=== PATIENT | female | born 1990 | race Caucasian/White ===

== ENCOUNTER → 2023-02-17 16:24 | Outpatient (BNVA) | payer BC, MEDICAID, SELFPAY | PROVIDERS: Family Provider Obstetrics & Gynecology; Visit Provider Emergency Medicine | DX: B37.9 Candidiasis, unspecified (principal); B96.89 Other specified bacterial agents as the cause of diseases classified elsewhere; N76.0 Acute vaginitis; Z20.2 Contact with and (suspected) exposure to infections with a predominantly sexual mode of transmission | CPT/HCPCS: 87491; 87591 ==

== ENCOUNTER → 2023-03-03 13:00 | Outpatient (BNVA) | payer BC, SELFPAY | PROVIDERS: Family Provider Obstetrics & Gynecology; Visit Provider Obstetrics & Gynecology | DX: Z12.4 Encounter for screening for malignant neoplasm of cervix (principal) | CPT/HCPCS: 87624 ==

== ENCOUNTER → 2023-03-31 10:12 | Outpatient (BNVA) | payer BC, SELFPAY | PROVIDERS: Family Provider Obstetrics & Gynecology; Visit Provider Obstetrics & Gynecology | DX: R10.2 Pelvic and perineal pain (principal) | CPT/HCPCS: 76830 ==

== ENCOUNTER → 2023-04-02 14:40 | Outpatient (BNVA) | payer BC, SELFPAY | PROVIDERS: Family Provider Obstetrics & Gynecology; Visit Provider Obstetrics & Gynecology | DX: A74.9 Chlamydial infection, unspecified (principal) | CPT/HCPCS: 87491; 87591 ==

== ENCOUNTER 2023-06-05 17:07 | Emergency (ER) | payer BC, MEDICAID, SELFPAY ==
[2023-06-05 17:28] VITALS: BP 125/94; PULSE 95; RESP 15; TEMP 37; O2SAT 99
--- NOTE | 2023-06-05 18:15 | USR_ITS ---
PROCEDURE INFORMATION: Exam: US , Transvaginal Exam date and time: 06/05/2023 6:48 PM Age: 32 years old Clinical indication: complicated by abdominal or pelvic pain; Right lower quadrant; First trimester (<14 weeks 0 days); Gestational age or lmp: 10w 0d by US; ; Patient HX: G4-p3-a1-l2 -- first was ectopic (left fallopian). Now rlq pain today, no vaginal bleeding. Positive qualitative hcg. Quantitative hcg is still pending at end of this exam. ; Additional info: Abd pain TECHNIQUE: Imaging protocol: Real-time transvaginal obstetrical ultrasound of the maternal pelvis with image documentation. Transvaginal imaging was used for better evaluation of the fetus, adnexa, and/or cervix. COMPARISON: US transvaginal [id number] 03/31/2023 10:19 AM FINDINGS: Gestation: See heart rate finding. heart rate: A single gestational sac is seen within the endometrium of the uterus with identification of a single pole with heart rate of 176 beats per minute. A small yolk sac is seen. BIOMETRY: Gestational age (AUA): [place]-rump length is 30.6 mm consistent with gestational age of 10 weeks 0 days. GRETCHEN of 01/01/2024. MATERNAL: Uterus: Uterus measures 10.4 x 8.5 x 7.2 cm and appears unremarkable. Right ovary/adnexa: Right ovary measures 3.5 x 3 x 1.6 cm and appears unremarkable. Right ovarian flow is seen. Left ovary/adnexa: Left ovary measures 2.6 x 2.6 x 1.1 cm and appears unremarkable. Left ovarian flow is seen. Intraperitoneal space: No significant free fluid. US/US pelvic complete* [id number] IMPRESSION: Single viable intrauterine of 10 weeks by crown-rump length with GRETCHEN 01/01/2024.
[2023-06-05 18:19] LABS: Basophils # 0.1 10^3/uL (0.0-0.1); Basophils % 0.5 %; Eosinophils # 0.1 10^3/uL (0.0-0.8); Eosinophils % 0.6 %; Hematocrit 40.2 % (36-47); Lymphocytes # 2.1 10^3/uL (0.8-4.8); Lymphocytes % 19.2 %; Mean Corpuscular HGB Conc 32.8 g/dL (30-55); Mean Corpuscular Volume 88.4 fl (85-98); Mean Platelet Volume 10.1 fL (7.4-10.4); Monocytes # 0.6 10^3/uL (0.2-0.9); Monocytes % 5.7 %; Neutrophils # 7.99 10^3/uL (1.8-7.7); Neutrophils % 73.7 %; Nucleated Red Blood Cells % 0 %; Platelet Count 354 10^3/cmm (157-399); Red Blood Count 4.55 10^6/uL (3.85-5.65); Red Cell Distribution Width 11.8 % (12.1-15.1); White Blood Count 10.83 10^3/uL (3.29-11.43)
--- NOTE | 2023-06-05 18:22 | W.ED.ABDPA2 ---
HPI - Abdominal Pain General: Chief Complaint: Abdominal Pain Stated Complaint: abd pain,preg 8 wks Time Seen by Provider: 06/05/23 18:14 Source: patient Mode of arrival: ambulatory Limitations: no limitations History of Present Illness: 32-year-old female states she is currently 8 weeks she is [facility] here [facility] as she has had a history of ectopic she states that over the last 2 weeks she has been having some suprapubic abdominal pain its been off-and-on she rates the pain a 2 out of 10 currently she denies any vomiting or diarrhea denies any fevers. Associated Symptoms: Denies chills, diarrhea, dysuria, fever(s), nausea and vomiting Review of Systems Const: Denies: fever(s), chills, body aches or change in appetite Eyes: Denies: blurry vision or eye discomfort ENMT: Denies: throat pain or dental pain Card: Denies: chest pain Resp: Denies: dyspnea GI: Reports: abdominal pain; Denies: nausea, vomiting or diarrhea : Denies: dysuria Musc: Denies: neck pain or back pain Skin/Breast: Denies: rash Neuro: Denies: headache(s) PFSH ED PFSH: Family History Denies family history of Colon cancer Ovarian cancer Diabetes Heart disease Hyperlipidemia Breast cancer Hypertension Uterine cancer Thyroid disease Stroke Physical Exam Const: COMMON NORMALS: no acute distress, patient oriented x3 and healthy appearing HENMT: COMMON NORMALS: normocephalic and atraumatic HEAD & SCALP: normocephalic and atraumatic Eye: COMMON NORMALS: Equal, round and reactive pupils present and EOMs intact bilaterally PUPIL: Yes Equal, round and reactive pupils present Neck/C-Spine: COMMON NORMALS: full ROM and supple Chest: COMMONS NORMALS: normal inspection of the chest and normal palpation of entire chest wall Resp: COMMON NORMALS: normal respiratory effort, No retractions, No use of accessory muscles and clear to auscultation bilaterally AUSCULTATION: clear to auscultation bilaterally Cardio: COMMON NORMALS: regular rate, regular rhythm and No murmurs present (Cardio) RATE: regular rate RHYTHM: regular rhythm GI: COMMON NORMALS: Normal to inspection, nondistended, normoactive bowel sounds present, Soft to palpation, non-tender and no masses PALPATION: Yes Soft to palpation Extremity: COMMON NORMALS: normal to inspection and full ROM Neuro: COMMON NORMALS: patient oriented x3, moves all extremities and no focal motor deficits Psych: COMMON NORMALS: mental status grossly normal, Normal thought process present and cooperative THOUGHT PROCESS: Normal thought process present Skin: COMMON NORMALS: no rashes or lesions noted and no wounds GENERAL SKIN EXAM: no rashes or lesions noted Course Vital Signs: Vital signs: Vital Signs Temperature 98.6 F 06/05/23 17:28 Pulse Rate 95 06/05/23 17:28 Respiratory Rate 15 06/05/23 17:28 Blood Pressure 125/94 06/05/23 17:28 Pulse Oximetry 99 06/05/23 17:28 Oxygen Delivery Me thod Room Air 06/05/23 17:28 MDM - Abdominal Pain Medical Decision Making Patient presents here with abdominal pain in her exam is benign no signs of appendicitis ultrasound here is normal patient stable for discharge she is to follow-up with her OB and return if worsening Medical Records I reviewed the patient's medical records. Lab Data I reviewed the patient's lab results. 06/05/23 17:59 06/05/23 17:59 Labs/Radiology: Radiology Impressions Pelvis Ultrasound 06/05/23 18:15 IMPRESSION: Single viable intrauterine of 10 weeks by crown-rump length with GRETCHEN 01/01/2024. Laboratory Results WBC 10.83 10^3/uL (3.29-11.43) 06/05/23 17:59 RBC 4.55 10^6/uL (3.85-5.65) 06/05/23 17:59 Hgb 13.20 g/dL (11.27-16.99) 06/05/23 17:59 Hct 40.2 % (36-47) 06/05/23 17:59 MCV 88.4 fl (85-98) 06/05/23 17:59 MCH 29.0 pg (27-33) 06/05/23 17:59 MCHC 32.8 g/dL (30-55) 06/05/23 17:59 RDW 11.8 % (12.1-15.1) L 06/05/23 17:59 Plt Count 354 10^3/cmm (157-399) 06/05/23 17:59 MPV 10.1 fL (7.4-10.4) 06/05/23 17:59 Neut % (Auto) 73.7 % 06/05/23 17:59 Lymph % (Auto) 19.2 % 06/05/23 17:59 [place] % (Auto) 5.7 % 06/05/23 17:59 Eos % (Auto) 0.6 % 06/05/23 17:59 Baso % (Auto) 0.5 % 06/05/23 17:59 Neut # (Auto) 7.99 10^3/uL (1.8-7.7) H 06/05/23 17:59 Lymph # (Auto) 2.1 10^3/uL (0.8-4.8) 06/05/23 17:59 [place] # (Auto) 0.6 10^3/uL (0.2-0.9) 06/05/23 17:59 Eos # (Auto) 0.1 10^3/uL (0.0-0.8) 06/05/23 17:59 Baso # (Auto) 0.1 10^3/uL (0.0-0.1) 06/05/23 17:59 Nucleated RBC % (auto) 0 % 06/05/23 17:59 Nucleated RBCs # 0.0 /100WBC 06/05/23 17:59 Sodium 136 mmol/L (136-145) 06/05/23 17:59 Potassium 3.1 mmol/L (3.5-5.1) L 06/05/23 17:59 Chloride 101 mmol/L (98-107) 06/05/23 17:59 Carbon Dioxide 19 mmol/L (22-29) L 06/05/23 17:59 Anion Gap 19.1 (5-19) H 06/05/23 17:59 BUN 7 mg/dL (6-20) 06/05/23 17:59 Creatinine 0.4 mg/dL (0.5-0.9) L 06/05/23 17:59 GFR Calculation 186.2 mL/min (90-130) H 06/05/23 17:59 Glucose 85 mg/dL (65-115) 06/05/23 17:59 Calculated Osmolality 279 mOsm/kg (285-295) L 06/05/23 17:59 Calcium 9.5 mg/dL (8.5-10.5) 06/05/23 17:59 Total Bilirubin 0.3 mg/dL (0.15-1.2) 06/05/23 17:59 AST 17 U/L (0-32) 06/05/23 17:59 ALT 25 U/L (0-33) 06/05/23 17:59 Alkaline Phosphatase 113 U/L (35-105) H 06/05/23 17:59 Total Protein 7.7 g/dL (6.6-8.7) 06/05/23 17:59 Albumin 4.2 g/dL (3.5-5.2) 06/05/23 17:59 Globulin 3.5 g/dL (1.3-4.6) 06/05/23 17:59 Ser , Semi-Qnt 48703.00 mIU/mL 06/05/23 17:59 Urine Color Yellow (Yellow) 06/05/23 20:24 Urine Appearance Clear (CLEAR) 06/05/23 20:24 Urine pH 5 (5-7) 06/05/23 20:24 Ur Specific [place] 1.025 (1.005-1.030) 06/05/23 20:24 Urine Protein Neg (Negative) 06/05/23 20:24 Urine Glucose (UA) Norm (Normal) 06/05/23 20:24 Urine Ketones 2+ (Negative) H 06/05/23 20:24 Urine Blood 2+ (Negative) H 06/05/23 20:24 Urine Nitrate Negative (Negative) 06/05/23 20:24 Urine Bilirubin Neg (Negative) 06/05/23 20:24 Urine Urobilinogen Neg mg/dL (Negative) 06/05/23 20:24 Ur Leukocyte Esterase Negative (Negative) 06/05/23 20:24 Urine RBC 5-10 /hpf (0-2) H 06/05/23 20:24 Urine WBC 0-4 /hpf (0-5) H 06/05/23 20:24 Ur Squamous Epith Cells 5-10 /hpf (0-5) H 06/05/23 20:24 Amorphous Sediment Not Reportable 06/05/23 20:24 Urine Bacteria Trace /hpf (NONE) 06/05/23 20:24 Urine Mucus 2+ /hpf 06/05/23 20:24 Blood Type A Positive 06/05/23 18:50 Rho(D) Type Rh positive 06/05/23 18:50 Antibody Screen Negative 06/05/23 18:50 All radiology interpretation(s) finalized by discharge Discharge Plan Discharge Patient Disposition: Home Clinical Impression: Pelvic pain affecting Qualifiers: Trimester: first trimester Qualified Code(s): O26.891 - Other specified related conditions, first trimester Condition: Stable Prescriptions: No Action PNV #[id number] 30 mg iron-10 mg iron-1 mg capsule PO Discharge Orders: Discharge ED (Routine); Ordered 06/05/23 Ordered By: Jason Kolb Referrals: Miko Hickey MD [Primary Care Provider] - 1-3 days Discharge Diet: Advance as tolerated Discharge Activity: Resume usual activity Patient Instructions: Abdominal Pain in (ED) Coding Level of Care Code ED Fretted String Instrument Repairer for Dov Hunt
[2023-06-05 19:08] LABS: Alanine Aminotransferase 25 U/L (0-33); Albumin Level 4.2 g/dL (3.5-5.2); Alkaline Phosphatase 113 U/L (35-105); Anion Gap 19.1 (5-19); Aspartate Amino Transferase 17 U/L (0-32); Blood Urea Nitrogen 7 mg/dL (6-20); Calcium 9.5 mg/dL (8.5-10.5); Carbon Dioxide 19 mmol/L (22-29); Chloride 101 mmol/L (98-107); Globulin 3.5 g/dL (1.3-4.6); Glomerular Filtration Rate 186.2 mL/min (90-130); Glucose 85 mg/dL (65-115); Osmolality Calculated 279 mOsm/kg (285-295); Potassium 3.1 mmol/L (3.5-5.1); Sodium 136 mmol/L (136-145); Total Bilirubin 0.3 mg/dL (0.15-1.2); Total Protein 7.7 g/dL (6.6-8.7)
[2023-06-05 19:10] LABS: Creatinine Clr Calc Pharmacy 164.6403
[2023-06-05 20:32] LABS: Add Urine Culture? No; Add Urine Microscopic? YES; Bacteria Urine TRACE /hpf; Bilirubin Urine Neg (Negative); Blood Urine 2+ (Negative); Glucose Urine UA Norm (Normal); Ketones Urine 2+ (Negative); Leukocyte Esterase Urine Negative (Negative); Mucus Urine 2+ /hpf; Nitrate Urine Negative (Negative); Protein Urine Neg (Negative); Specific Gravity, Urine 1.025 (1.005-1.030); Urine Appearance Clear (CLEAR); Urine Color Yellow (Yellow); Urobilinogen Urine Neg (Negative); WBC Urine 0-4 /hpf (0-5); pH Urine 5 (5-7)
[2023-06-05 20:44] VITALS: BP 125/94; PULSE 95; RESP 15; TEMP 37; O2SAT 99
== END 2023-06-05 20:45 | disposition home or self-care (01) ==
PROVIDERS: Emergency Medicine; Emergency Provider Emergency Medicine; PCP Obstetrics & Gynecology
DX: O26.891 Other specified pregnancy related conditions, first trimester (principal); R10.2 Pelvic and perineal pain; Z3A.10 10 weeks gestation of pregnancy
CPT/HCPCS: 36415; 76856; 80053; 81001; 81025; 84702; 85025; 86850; 86900; 99284

== ENCOUNTER → 2023-06-17 08:12 | Outpatient (BNVA) | payer BC, MEDICAID, SELFPAY | PROVIDERS: PCP Obstetrics & Gynecology; Visit Provider Nurse Practitioner Women's Health | DX: Z34.90 Encounter for supervision of normal pregnancy, unspecified, unspecified trimester (principal); Z32.01 Encounter for pregnancy test, result positive | CPT/HCPCS: 80053; 80307; 84315; 84439; 84443; 84481; 85025; 86592; 86762; 86803; 86850; 86900; 87086; 87340; 87806 ==

== ENCOUNTER → 2023-06-23 13:19 | Outpatient (BNVA) | payer BC, MEDICAID, SELFPAY | PROVIDERS: PCP Obstetrics & Gynecology; Visit Provider Obstetrics & Gynecology | DX: Z34.90 Encounter for supervision of normal pregnancy, unspecified, unspecified trimester (principal) | CPT/HCPCS: 81000 ==

== ENCOUNTER → 2023-08-13 13:46 | Outpatient (BNVA) | payer BC, MEDICAID, SELFPAY | PROVIDERS: PCP Obstetrics & Gynecology; Visit Provider Nurse Practitioner Women's Health | DX: Z34.91 Encounter for supervision of normal pregnancy, unspecified, first trimester (principal) | CPT/HCPCS: 76805 ==

== ENCOUNTER → 2023-09-10 11:11 | Outpatient (BNVA) | payer BC, MEDICAID, SELFPAY | PROVIDERS: PCP Obstetrics & Gynecology; Visit Provider Obstetrics & Gynecology | DX: Z34.91 Encounter for supervision of normal pregnancy, unspecified, first trimester (principal) | CPT/HCPCS: 76816 ==

== ENCOUNTER → 2023-10-20 08:08 | Outpatient (BNVA) | payer BC, MEDICAID, SELFPAY | PROVIDERS: PCP Obstetrics & Gynecology; Visit Provider Obstetrics & Gynecology | DX: Z34.90 Encounter for supervision of normal pregnancy, unspecified, unspecified trimester | CPT/HCPCS: 82950; 84315 ==

== ENCOUNTER → 2023-12-29 14:26 | Outpatient (BNVA) | payer BC, MEDICAID, SELFPAY | PROVIDERS: Visit Provider Obstetrics & Gynecology | DX: Z34.90 Encounter for supervision of normal pregnancy, unspecified, unspecified trimester (principal) | CPT/HCPCS: 87081 ==

== ENCOUNTER 2024-01-05 07:24 | Inpatient (IN) | payer BC, MEDICAID, SELFPAY ==
[2024-01-05] VITALS (28 sets, daily range): BP systolic 85–131; BP diastolic 52–86; PULSE 63–98; RESP 16–17; TEMP 36.3–36.4; BMI 29.2
[2024-01-05 08:23] LABS: Basophils % 0.3 %; Eosinophils # 0.1 10^3/uL (0.0-0.8); Eosinophils % 0.9 %; Hematocrit 37.6 % (36-47); Lymphocytes # 2.3 10^3/uL (0.8-4.8); Lymphocytes % 26.4 %; Mean Corpuscular Hemoglobin 29.2 pg (27-33); Mean Corpuscular Volume 88.7 fl (85-98); Mean Platelet Volume 11.8 fL (7.4-10.4); Monocytes # 0.5 10^3/uL (0.2-0.9); Monocytes % 6.2 %; Neutrophils # 5.75 10^3/uL (1.8-7.7); Neutrophils % 65.9 %; Nucleated Red Blood Cells % 0 %; Platelet Count 258 10^3/cmm (157-399); Red Blood Count 4.24 10^6/uL (3.85-5.65); Red Cell Distribution Width 13.1 % (12.1-15.1); White Blood Count 8.74 10^3/uL (3.29-11.43)
[2024-01-05] MEDS: dextrose 5%-lactated ringers 1,000 ML 125 ML IV ×2 (08:40→16:43)
[2024-01-05] MEDS: oxytocin 30 UNIT/500 ML BAG IV (08:40)
--- NOTE | 2024-01-05 09:10 | PM.OBGYHP ---
Providers/Chief Complaint Admitting Physician: Miko Hickey MD Primary DELIVERY DRIVER/CUSTOMER SERVICE: Miko Hickey MD Chief Complaint: induction of labor HPI DELIVERY DRIVER/CUSTOMER SERVICE History of Present Illness Junior Hansen is a 33 year old female Ec1 EDC December 28, 2023 At 41 w 1 d No complications Admitted for induction of labor due to postdates No c/o + active movements Present Details : 4 Para: 2 Labs Rubella: Immune RPR: Negative GBS: Negative Medications/Allergies Home Medications Medication Instructions Recorded Confirmed Last Taken Type vitamin#30 30 mg iron-10 1 cap PO DAILY 06/05/23 01/05/24 Unknown History mg iron-folic acid 1 mg-omg3 capsule Allergies Allergy/AdvReac Type Severity Reaction Status Date / Time No Known Allergies Allergy Verified 12/29/23 10:32 PFSH DELIVERY DRIVER/CUSTOMER SERVICE PFSH: Family History Denies family history of Colon cancer Ovarian cancer Diabetes Heart disease Hyperlipidemia Breast cancer Hypertension Uterine cancer Thyroid disease Stroke History History History 4 Term 2 0 Miscarriages/Ectopic 1 Living Children 2 Care GRETCHEN Calculator Estimated Delivery Date Method Current WG Current Estimate 12/28/23 LMP (Certain) 41w 2d Other Estimates 01/01/24 Ultrasound #1 40w 5d Vitals/I&O/Wt Last Vital Signs Temp 97.3 F L 01/05/24 15:40 Pulse 77 01/06/24 03:01 Resp 17 01/05/24 16:00 BP 140/78 01/06/24 03:01 Pulse Ox 100 01/06/24 02:25 O2 Del Method Room Air 01/05/24 08:21 01/05/24 01/05/24 01/06/24 14:59 22:59 06:59 Intake Total 56.083 / 56.083 1737.883 / 1793.966 955.750 / 2749.716 Balance 56.083 / 56.083 1737.883 / 1793.966 955.750 / 2749.716 Weight last 48 hrs Weight 155 lb Physical Exam Narrative: Weight 153 lbs; 5?1? BP 118 / 70 General: comfortable, awake, alert Lungs: clear Cor: RRR Abd: soft, nontender FH 39 cm, cephalic Cervix: 2 cm Ext: no edema External monitor: heart tracing good variability, + accelerations Data 01/05/24 07:45 Results Labs OB ([facility]): Obstetrics US 09/10/23 Blood Type A Positive 01/05/24 Antibody Screen Negative 01/05/24 Hct 37.6 % (36-47) 01/05/24 Hgb 12.40 g/dL (11.27-16.99) 01/05/24 Rho(D) Type Rh positive 01/05/24 Plt Count 258 10^3/cmm (157-399) 01/05/24 Hep Bs Antigen Non-reactive (Nonreactive) 06/17/23 Hepatitis C Antibody Non-reactive (Nonreactive) 06/17/23 Rubella IgG Antibody 123.5 IU/mL (0.0-10.0) H 06/17/23 RPR Nonreactive (Nonreactive) 06/17/23 HIV 1&2 Ab & HIV 1 Ag Non-reactive (Non-Reactiv) 06/17/23 TSH 0.52 uIU/mL (0.27-4.20) 06/17/23 Free T4 1.11 ng/dL (0.82-1.77) 06/17/23 C.trachomatis RNA (TMA) Not detected (NOT DETECTED) 04/02/23 N.gonorrhoeae RNA (TMA) Not detected (NOT DETECTED) 04/02/23 T. vaginalis Amp RNA Not detected (NOT DETECTED) 04/02/23 Chlamydia/GC Comment See note 04/02/23 Cystic Fibrosis Screen Negative 06/17/23 Glucose 1 Hr 50 gm 120 mg/dL (85-140) 10/20/23 Ser , Semi-Qnt 64552.00 mIU/mL 06/05/23 HCG, Qual Positive (Negative) H 06/05/23 Urine Opiates Screen Negative ng/mL (Negative) 06/17/23 Ur Barbiturates Screen Negative ng/mL (Negative) 06/17/23 Ur Phencyclidine Scrn Negative ng/mL (Negative) 06/17/23 Ur Amphetamines Screen Negative ng/mL (Negative) 06/17/23 U Benzodiazepines Scrn Negative ng/mL (Negative) 06/17/23 Urine Cocaine Screen Negative ng/mL (Negative) 06/17/23 U Marijuana (THC) Screen Negative ng/mL (Negative) 06/17/23 Micro Urine Specimen 06/17/23 Pap Smear Interpret See note 03/03/23 A&P Assessment and plan (1) Encounter for induction of labor: 41 w 1 d Admitted for induction of labor Fetus reassuring Plan Pitocin induction per protocol h/o x two Attestations Medical Necessity Statement*: patient at 41 w 1 d, admitted for induction of labor Coding Level of Care Code Acute Code for Chg Fwd Diagnoses Encounter for induction of labor Z34.90 Time Spent (min) 30
[2024-01-06] VITALS (84 sets, daily range): BP systolic 95–196; BP diastolic 50–117; PULSE 69–151; RESP 16–17; TEMP 36.5–37.1; O2SAT 97–100; BMI 29.2
[2024-01-06] MEDS: lactated ringers 1,000 ML 999 ML IV ×2 (01:45→04:14)
--- NOTE | 2024-01-06 01:51 | P.ANESASSM_ITS ---
Pre-Anesthetic Assessment Height/Weight: Height 1.55 m Weight 70.307 kg Temp Pulse Resp BP O2 Del Method 97.3 F L 83 17 115/68 Room Air 01/05/24 15:40 01/06/24 00:49 01/05/24 16:00 01/06/24 00:49 01/05/24 08:21 Preop Diagnosis: IUP Labor epidural Familial anesthetic complications: None Was Beta Genaro taken within 24 hours: N/A Was Clonidine taken within 24 hours: N/A Last intake: liquids @0000 solids @1700 Social No alcohol and No tobacco Exam alert, oriented x 3 and clear to auscultation bilaterally Airway Mallampati: Class II Dentition: full History/ROS No significant history except as noted Pulmonary None reported CV/HEM None reported None reported Hepatic None reported GI Gastroesophageal Reflux Disease Metabolic None reported Musc/skel None reported Neuropsych None reported Anesthetic Plan ASA status: 2 Anesthesia: Anesthesia Evaluation and Regional (specify below) (epidural ) Risk of > 500 ml blood loss (7ml/kg in children): Yes, adequate IV access and fluids planned Medications/Allergies Home Medications Medication Instructions Recorded Confirmed Last Taken Type vitamin#30 30 mg iron-10 1 cap PO DAILY 06/05/23 01/05/24 Unknown History mg iron-folic acid 1 mg-omg3 capsule Allergies Allergy/AdvReac Type Severity Reaction Status Date / Time No Known Allergies Allergy Verified 12/29/23 10:32 Current Medications Generic Name Dose Route Start Last Admin Trade Name Freq PRN Reason Stop Dose Admin Dextrose/Lactated Ringer's 1,000 mls @ 125 mls/hr 01/05/24 08:15 01/05/24 20:01 Dextrose 5%-Lactated Ringers IV 125 mls/hr .Q8H RAND Infusion Oxytocin 30 unit in 500 mls @ 1 mls/hr 01/05/24 08:15 01/05/24 22:00 Pitocin IV 7 milliunit/min .Q24H RAND 7 mls/hr Titration Protocol 1 MILLIUNIT/MIN PFSH Anesthesia Family History Denies family history of Colon cancer Ovarian cancer Diabetes Heart disease Hyperlipidemia Breast cancer Hypertension Uterine cancer Thyroid disease Stroke Female Reproductive History : 4 Data Anesthesia 01/05/24 07:45 Short CBC 01/05/24 Range/Units 07:45 WBC 8.74 (3.29-11.43) 10^3/uL Hgb 12.40 (11.27-16.99) g/dL Hct 37.6 (36-47) % MCV 88.7 (85-98) fl Plt Count 258 (157-399) 10^3/cmm Neut % (Auto) 65.9 % Neut # (Auto) 5.75 (1.8-7.7) 10^3/uL Blood Bank 01/05/24 07:45 Blood Type A Positive Rho(D) Type Rh positive Antibody Screen Negative Cardiac Studies: 2 No Data to Display
[2024-01-06] MEDS: ROPivacaine syringe 100 MG/50 ML SYRINGE 10 MG EPIDURAL ×3 (02:30→08:55)
--- NOTE | 2024-01-06 02:33 | P.ANES_ITS ---
Anesthesia Procedures Procedure/Date: 01/06/24 Epidural: Time Out Performed: Yes Consents Signed: Procedure Consent Consent: requested by attending/covering physician, from patient, risks and benefits reviewed and patient agrees to proceed Lumbar Level: L4-L5 Epidural position: sitting Epidural procedure: sterile prep of area, 1% lidocaine to numb the area, 18 g needle, negative for paresthesia passed, neg for paresthesia, test dose given, 1.5% xylocaine 1:200k epi, 0.2% Ropivacaine bolus ml (5), placed PCEA, no systemic response, sterile dressing applied, L.U.D. no apparent complications and 0.2% Ropiavacaine @ mls/hr (10) Additional Comments: epidural attempt x2, on 2nd attempt GREG at 5cm, catheter easily threaded to 5cm in the space. When threading the catheter pt complained of pain and pressure in her back this resolved immediately and did not occur again, no paresthesia, or pain in legs. Pt educated on PUBLIC TRANSIT BUS DRIVER.
[2024-01-06] MEDS: dextrose 5%-lactated ringers 1,000 ML 125 ML IV (02:54)
--- NOTE | 2024-01-06 04:11 | ANES.PROC ---
Anesthesia Procedures Procedure/Date: 01/06/24 Epidural: Additional Comments: Called by RN stating pt is not comfortable and still having pain with contractions with epidural. Pt assessed and is rating pain 10/10 with contractions. Options discussed with pt and she would like to remove this epidural and try to replace it with a new one. Dr sherman called to attempt epidural replacement. Current epidural catheter removed easily, catheter tip intact.
--- NOTE | 2024-01-06 07:56 | ANES.PROC ---
Anesthesia Procedures Procedure/Date: 01/06/24 Epidural: Time Out Performed: Yes Consents Signed: Procedure Consent Consent: requested by attending/covering physician, from patient, risks and benefits reviewed and patient agrees to proceed Lumbar Level: L3-L4 Epidural position: sitting Epidural procedure: sterile prep of area, 1% lidocaine to numb the area, 18 g needle, neg for paresthesia, test dose given, 1.5% xylocaine 1:200k epi, placed PCEA, no systemic response, sterile dressing applied and 0.2% Ropiavacaine @ mls/hr Additional Comments: GREG at 4cm, cath at 9cm, bolused 5mls of 2% lido
[2024-01-06] MEDS: ondansetron 2 mg/ML SDV 2 mL 4 MG IVP (08:16)
[2024-01-06] MEDS: acetaminophen 325 mg Tablet 650 MG PO (10:40)
--- NOTE | 2024-01-06 12:40 | PM.DELIVERY ---
Delivery Note: Date of delivery: January 06, 2024 Pre-delivery diagnoses: 41 w 1 d induction of labor Post-delivery diagnoses: 41 w 1 d induction of labor vaginal delivery repair of second-degree perineal laceration Procedure: induction of labor vaginal delivery repair of second-degree perineal laceration Op report anesthesia: Epidural Delivering Physician: Miko Hickey MD Estimated blood loss (mL): 300 Findings: , vigorous infant Cord gases obtained Normal placenta and cord Second-degree perineal laceration repaired EBL: 300 cc No complications Pre-Delivery Course: normal labor course Delivery: vaginal Post-Delivery Status: good History History History 4 Term 2 0 Miscarriages/Ectopic 1 Living Children 2 A&P Assessment and plan (1) Vaginal delivery: Coding Level of Care Code Acute Code for Chg Fwd Diagnoses Vaginal delivery O80 Time Spent (min) 60
--- NOTE | 2024-01-06 14:00 | PC.NURSE ---
this news writer at bedside, pt requested that her IV be taken out, this nurse educated that in the event that she were to hemorrhage or has an even that requires IV access that a new one would be started. This nurse looked at other hand to verify that pt does have appropriate veins in the event that iv access is needed.
[2024-01-06] MEDS: ibuprofen 800 mg tablet PO ×2 (15:47→20:23)
--- NOTE | 2024-01-06 17:59 | ANE.PACU2 ---
Inpatient post-anesthesia follow up: Airway intact: Yes Vital signs: Temperature 98.8 F Pulse Rate 91 Respiratory Rate 17 Blood Pressure 124/74 Pulse Oximetry 98 Oxygen Delivery Me thod Room Air Oxygen Flow Rate Fraction of Inspir ed Oxygen Hydration adequate: Yes Nausea and vomiting: No Pain level: 2 Mental status: Baseline Epidural Start/End: Epidural Start Date: 01/06/24 Epidural Start Time: 02:00 Epidural End Date: 01/06/24 Epidural End Time: 14:45
[2024-01-06] MEDS: docusate sodium 100 mg Capsule PO (20:23)
[2024-01-06] MEDS: HYDROcodone-acetaminophen 5-325 mg Tablet PO (23:28)
[2024-01-07 04:36] VITALS: BP 111/75; PULSE 88; RESP 16; TEMP 36.8; O2SAT 98
[2024-01-07 04:49] LABS: Hematocrit 31.2 % (36-47); Mean Corpuscular HGB Conc 32.7 g/dL (30-55); Mean Corpuscular Hemoglobin 29.2 pg (27-33); Mean Corpuscular Volume 89.4 fl (85-98); Mean Platelet Volume 11.3 fL (7.4-10.4); Platelet Count 178 10^3/cmm (157-399); Red Blood Count 3.49 10^6/uL (3.85-5.65); Red Cell Distribution Width 13.2 % (12.1-15.1); White Blood Count 10.82 10^3/uL (3.29-11.43)
[2024-01-07] MEDS: PRENATAL VIT NO.130/IRON/FOLIC 1 EACH TABLET PO (09:46)
[2024-01-07] MEDS: docusate sodium 100 mg Capsule PO (09:46)
[2024-01-07] MEDS: ibuprofen 800 mg tablet PO (09:46)
[2024-01-07] MEDS: HYDROcodone-acetaminophen 5-325 mg Tablet PO (09:52)
[2024-01-07 11:00] VITALS: BP 127/70; PULSE 85; RESP 17; TEMP 36.9
--- NOTE | 2024-01-07 13:45 | P.DS_ITS ---
Discharge Providers [employer]PERVISOR Date of Admission: 01/06/24 02:00 Date of Discharge: 01/07/24 Attending Provider at Admission: Miko Hickey MD Attending Provider at Discharge: Miko Hickey MD Consults: none Primary [employer]ING SUPERVISOR: Miko Hickey MD Diagnoses at Discharge Discharge Diagnosis (1) Vaginal delivery: Details from hospital stay: patient admitted at 41 w 1 d for induction of labor patient received pitocin induction progressed to vaginal delivery with repair of second-degree perineal laceration there were no complications patient was discharged to home on the first day Status: Inactive Reason for Visit Reason for Visit: induction of labor Brief History: patient was admitted at 41 w 1 d for induction of labor Hospital Course Hospital Course patient admitted at 41 w 1 d for induction of labor patient received pitocin induction progressed to vaginal delivery with repair of second-degree perineal laceration there were no complications patient was discharged to home on the first day Information Peripartum Data: Delivery Method: Vaginal Laceration description: Perineal - 2nd Degree Episiotomy description: None complications: none Physical Exam Narrative: afebrile, VS normal comfortable, awake, alert Abd: soft, nontender. fundus firm Ext: no edema; nontender Urinary Catheter Management: [place]: Cath Placed During This Visit: yes, but has since been removed by the nurse Reason for Continuing Indwelling Catheter: Decision to DC Catheter Urinary Catheter Date of Insertion: 01/06/24 Urinary Catheter Time of Insertion: 03:28 Date Urinary Catheter Removed: 01/06/24 Time Urinary Catheter Discontinued: 08:15 History History History 4 Term 2 0 Miscarriages/Ectopic 1 Living Children 2 Discharge Data Studies Completed and Pending Laboratory Results WBC 10.82 10^3/uL (3.29-11.43) 01/07/24 04:40 RBC 3.49 10^6/uL (3.85-5.65) L 01/07/24 04:40 Hgb 10.20 g/dL (11.27-16.99) L 01/07/24 04:40 Hct 31.2 % (36-47) L 01/07/24 04:40 MCV 89.4 fl (85-98) 01/07/24 04:40 MCH 29.2 pg (27-33) 01/07/24 04:40 MCHC 32.7 g/dL (30-55) 01/07/24 04:40 RDW 13.2 % (12.1-15.1) 01/07/24 04:40 Plt Count 178 10^3/cmm (157-399) 01/07/24 04:40 MPV 11.3 fL (7.4-10.4) H 01/07/24 04:40 Neut % (Auto) 65.9 % 01/05/24 07:45 Lymph % (Auto) 26.4 % 01/05/24 07:45 Ashley % (Auto) 6.2 % 01/05/24 07:45 Eos % (Auto) 0.9 % 01/05/24 07:45 Baso % (Auto) 0.3 % 01/05/24 07:45 Neut # (Auto) 5.75 10^3/uL (1.8-7.7) 01/05/24 07:45 Lymph # (Auto) 2.3 10^3/uL (0.8-4.8) 01/05/24 07:45 Ashley # (Auto) 0.5 10^3/uL (0.2-0.9) 01/05/24 07:45 Eos # (Auto) 0.1 10^3/uL (0.0-0.8) 01/05/24 07:45 Baso # (Auto) 0.0 10^3/uL (0.0-0.1) 01/05/24 07:45 Nucleated RBC % (auto) 0 % 01/05/24 07:45 Nucleated RBCs # 0.0 /100WBC 01/05/24 07:45 Blood Type A Positive 01/05/24 07:45 Rho(D) Type Rh positive 01/05/24 07:45 Antibody Screen Negative 01/05/24 07:45 Procedures Performed labor induction vaginal delivery repair of second-degree perineal laceration Vitals Last Vital Signs Temp 98.1 F 01/07/24 15:30 Pulse 83 01/07/24 15:30 Resp 17 01/07/24 15:30 BP 115/73 01/07/24 15:30 Pulse Ox 98 01/07/24 04:36 O2 Del Method Room Air 01/07/24 15:00 Results Labs OB ([facility] Obstetrics US 09/10/23 Blood Type A Positive 01/05/24 Antibody Screen Negative 01/05/24 Hct 31.2 % (36-47) L 01/07/24 Hgb 10.20 g/dL (11.27-16.99) L 01/07/24 Rho(D) Type Rh positive 01/05/24 Plt Count 178 10^3/cmm (157-399) 01/07/24 Hep Bs Antigen Non-reactive (Nonreactive) 06/17/23 Hepatitis C Antibody Non-reactive (Nonreactive) 06/17/23 Rubella IgG Antibody 123.5 IU/mL (0.0-10.0) H 06/17/23 RPR Nonreactive (Nonreactive) 06/17/23 HIV 1&2 Ab & HIV 1 Ag Non-reactive (Non-Reactiv) 06/17/23 TSH 0.52 uIU/mL (0.27-4.20) 06/17/23 Free T4 1.11 ng/dL (0.82-1.77) 06/17/23 C.trachomatis RNA (TMA) Not detected (NOT DETECTED) N.gonorrhoeae RNA (TMA) Not detected (NOT DETECTED) T. vaginalis Amp RNA Not detected (NOT DETECTED) 04/02/23 Chlamydia/GC Comment See note 04/02/23 Cystic Fibrosis Screen Negative 06/17/23 Glucose 1 Hr 50 gm 120 mg/dL (85-140) 10/20/23 Ser , Semi-Qnt 28202.00 mIU/mL 06/05/23 HCG, Qual Positive (Negative) H 06/05/23 Urine Opiates Screen Negative ng/mL (Negative) 06/17/23 Ur Barbiturates Screen Negative ng/mL (Negative) 06/17/23 Ur Phencyclidine Scrn Negative ng/mL (Negative) 06/17/23 Ur Amphetamines Screen Negative ng/mL (Negative) 06/17/23 U Benzodiazepines Scrn Negative ng/mL (Negative) 06/17/23 Urine Cocaine Screen Negative ng/mL (Negative) 06/17/23 U Marijuana (THC) Screen Negative ng/mL (Negative) 06/17/23 Micro Urine Specimen 06/17/23 Pap Smear Interpret See note 03/03/23 Discharge Plan Discharge Patient Disposition: Home Condition: Stable Prescriptions: New Percocet 5-325 mg tablet 1 tab PO BID PRN (Reason: pain) Qty: 14 0RF Continued PNV #[id number] 30 mg iron-10 mg iron-1 mg capsule 1 cap PO DAILY Discharge Orders: Discharge Order (Routine); Ordered 01/07/24 Ordered By: Miko Hickey Referrals: Miko Hickey MD [Physician] - 02/18/24 1:30 pm (6 week ) Discharge Diet: Usual diet Discharge Activity: Increase activity as tolerated Patient Instructions: Depression (DC), Opioid Safety (DC), Preeclampsia and Eclampsia After Delivery (GEN), Hemorrhage (DC), OB Discharge Report, OB Food/Drug Interaction Guide, Opioid Safety, OB Home Care, OB Vaginal Deliveries - [facility], Abnormal Bleeding Discharge Attestations [employer] Time Spent in Discharge Care*: less than 30 min Coding Level of Care Code Acute Code for Chg Fwd Diagnoses Vaginal delivery O80 Time Spent (min) 20
[2024-01-07 15:00] VITALS: BP 115/73; PULSE 83; RESP 17; TEMP 36.7
[2024-01-07 15:30] VITALS: BP 115/73; PULSE 83; RESP 17; TEMP 36.7
== END 2024-01-07 15:40 | disposition home or self-care (01) | DRG 807 ==
LOC: OPOB 07:25 → OBGYN 07:53
PROVIDERS: Admitting Provider Obstetrics & Gynecology; Visit Provider Obstetrics & Gynecology
DX: O48.0 Post-term pregnancy (principal); Z37.0 Single live birth; Z3A.41 41 weeks gestation of pregnancy; O70.1 Second degree perineal laceration during delivery
CPT/HCPCS: 36415; 51702; 59409; 85025; 85027; 86850; 86900; 96374; G0378; J2405; J2590; J2795; J7120; J7121

== ENCOUNTER → 2024-01-29 13:28 | Outpatient (BNVA) | payer BC, MEDICAID, SELFPAY | PROVIDERS: Visit Provider Nurse Practitioner Women's Health | DX: R30.0 Dysuria (principal) | CPT/HCPCS: 84315; 87077; 87086; 87184 ==

== ENCOUNTER → 2024-10-17 13:05 | Outpatient (BNVA) | payer BC, MEDICAID, SELFPAY | PROVIDERS: Visit Provider Emergency Medicine | DX: R11.0 Nausea (principal); N39.0 Urinary tract infection, site not specified | CPT/HCPCS: 81000; 81025; 87086; 87491; 87591 ==

== ENCOUNTER → 2024-10-18 10:48 | Outpatient (BNVA) | payer BC, MEDICAID, SELFPAY | PROVIDERS: Visit Provider Emergency Medicine | DX: Z20.2 Contact with and (suspected) exposure to infections with a predominantly sexual mode of transmission (principal) | CPT/HCPCS: 87491; 87591; 87661 ==